=== PATIENT | female | born 1965 | race Two or more races ===

== ENCOUNTER 2021-09-13 11:01 | Emergency (ER) | payer OTHER ==
[~2021-09-13] VITALS: Ht 162.6 cm; Wt 104.3 kg
[2021-09-13] MEDS ORDERED: LOTREL 5-20 MG1 CAP (11:22)
[2021-09-13] MEDS ORDERED: MOBIC15 MG (11:22)
[2021-09-13] MEDS ORDERED: KETO10TA2 PO (13:59)
[2021-09-13] MEDS ORDERED: NORFLEX100MG PO (13:59)
== END 2021-09-13 14:10 | disposition home or self-care (01) ==
LOC: ER 11:01
DX: M54.50 Low back pain, unspecified (principal); M25.561 Pain in right knee; M25.562 Pain in left knee

== ENCOUNTER 2022-11-16 10:37 | Emergency (ER) | payer OTHER ==
[~2022-11-16] VITALS: Ht 157.5 cm; Wt 107.0 kg
[~2022-11-16 10:37] MED LIST: KETO10TA2 PO; LOTREL 5-20 MG1 CAP; MOBIC15 MG; NORFLEX100MG PO
[2022-11-16] MEDS ORDERED: LEXAPRO5 MG (11:03)
[2022-11-16] MEDS ORDERED: DUI500 PO (14:14)
== END 2022-11-16 14:19 | disposition home or self-care (01) ==
LOC: ER 10:37
DX: S69.92XA Unspecified injury of left wrist, hand and finger(s), initial encounter (principal); X58.XXXA Exposure to other specified factors, initial encounter; Y93.9 Activity, unspecified; Y92.9 Unspecified place or not applicable; I10 Essential (primary) hypertension; F32.A Depression, unspecified

== ENCOUNTER 2022-12-01 12:07 | Emergency (ER) | payer OTHER ==
[~2022-12-01] VITALS: Ht 165.1 cm; Wt 107.0 kg
[~2022-12-01 12:07] MED LIST changes: +DUI500 PO; +LEXAPRO5 MG
== END 2022-12-01 15:00 | disposition home or self-care (01) ==
LOC: ER 12:07
DX: U07.1 COVID-19 (principal); I10 Essential (primary) hypertension

== ENCOUNTER 2023-02-16 17:12 | Emergency (ER) | payer OTHER ==
[~2023-02-16] VITALS: Ht 165.1 cm; Wt 109.8 kg
== END 2023-02-16 22:18 | disposition home or self-care (01) ==
LOC: ER 17:12
DX: R19.7 Diarrhea, unspecified (principal); Z88.0 Allergy status to penicillin

== ENCOUNTER 2024-11-25 11:14 | Emergency (ER) | payer OTHER ==
[~2024-11-25] VITALS: Ht 165.1 cm; Wt 108.9 kg
[~2024-11-25 11:14] MED LIST changes: +TUSSIN DM SYRU118 ML PO; +ZITHROMAX500 MG PO
[2024-11-25 13:57] LABS: HEMATOCRIT 41.2 % (36.0-45.00); HEMOGLOBIN 13.5 g/dL (12.0-15.00); MEAN CELL VOLUME 89.4 fL (80.00-100.00); MEAN CORPUSCULAR HEMOGLOBIN 29.4 pg (27.00-32.0); MEAN CORPUSCULAR HGB CONC 32.9 g/dl (32.0-36.0); PLATELET COUNT 181 K/uL (150-450); RED BLOOD COUNT 4.62 M/uL (4.00-6.00); RED CELL DISTRIBUTION WIDTH 13.9 % (11.5-14.5)
[2024-11-25] MEDS ORDERED: ZITHROMAX TRI-500 MG PO (16:42)
[2024-11-25] MEDS ORDERED: ACETAMINOPHEN500 M1 PO (16:42)
[2024-11-25] MEDS ORDERED: GILTUSS COUGH-118 M1 PO (16:42)
== END 2024-11-25 17:25 | disposition home or self-care (01) ==
LOC: ER 11:17
PROVIDERS: Preventive Medicine Public Health & General Preventive Medicine
DX: J06.9 Acute upper respiratory infection, unspecified (principal); Z20.822 Contact with and (suspected) exposure to COVID-19; I10 Essential (primary) hypertension; Z88.0 Allergy status to penicillin